=== PATIENT | female | born 1995 | race African-American/Black ===

== ENCOUNTER 2020-07-06 17:47 | Emergency (ER) | payer MEDICAID, MEDICARE ==
[~2020-07-06] VITALS: Ht 160 cm; Wt 54.4 kg
[2020-07-06] MEDS ORDERED: IBUPROFEN 400 MG TAB PO ONE (18:45)
[2020-07-06] MEDS ORDERED: ACETAMINOPHEN 325 MG TAB PO ONE (18:45)
--- OUTSIDE RECORDS SUMMARY | 2020-07-06 19:15 | XMS REPORT | Continuity of Care Document ---
Author Author [facility] Organization [facility] Address [address] [place] [address] Phone Unavailable Care Team Providers Care Stonehand Name Role Phone Unavailable Unavailable Problems This patient has no known problems. Allergies, Adverse Reactions, Alerts This patient has no known allergies or adverse reactions. Social History Social Habit Start Date Stop Date Quantity Comments Source Sex Assigned At Nadja Wade Medications This patient has no known medications. Procedures This patient has no known procedures. Plan of Care Planned Activity Planned Date Details Comments Source Future Scheduled Test 2020-07-26 00:00:00 INFLUENZA VACCINE [code = INFLUENZA VACCINE] Beck Wade Future Scheduled Test 2017 00:00:00 Screening for fermin gnant neoplasm of cervix (procedure) [code = 550309666] [facility] Future Scheduled Test 2012 00:00:00 CHLAMYDIA SCREENIN G [code = CHLAMYDIA SCREENING] [facility] Sheri Results This patient has no known results.
--- OUTSIDE RECORDS SUMMARY | 2020-07-06 19:15 | XMS REPORT | Clinical Summary ---
Author Author [facility] Organization [facility] Address Unknown Phone Unavailable Care Team Providers Care Pbx Mechanic Name Role Phone PCP Unavailable Allergies No Known Allergies Medications Not on file Active Problems Not on file Social History Date Tobacco Use Types Packs/Day Years Used Never Assessed Sex Assigned at Date Recorded Not on file Industry Job Start Date Occupation Not on file Not on file Not on file Travel End Travel History Travel Start No recent travel history available. Last Filed Vital Signs Not on file Plan of Treatment Health Maintenance Due Date Last Done Comments CHLAMYDIA SCREENING 2012 CERVICAL CANCER SCREENING 2017 INFLUENZA VACCINE 07/26/2020 Results Not on fileafter 07/06/2019 Insurance Type Payer Benefit Subscriber ID Effective Phone Address Plan / Dates Group Medicaid MEDICAID MEDICAID xxxxxxxxx [id number] jovanna Advance Directives For more information, please contact: [phone] Patient [employer] Explanation Type Date Recorded Advance Directives, Living Will and Medical Power of Locomotive Inspector
--- NOTE | 2020-07-06 19:48 | Emergency Department Note ---
History of Present Illnes History of Present Illness Chief Complaint: General Medicine Complaints History of Present Illness This is a 24 year old female Chief Complaint Comment PATIENT IN FROM HOME WITH COMPLAINTS OF RIGHT ANKLE PAIN STARTING THIS MORNING; PATIENT DENIES ANY TRAUMA, NO TRIP OR FALL, NO RECENT INJURY. PATIENT RATES PAIN 10/10, AMBULATORY WITH A LIMP. Historian: Patient Arrival Mode: Car Differential Repairer Required: No Onset (how long ago): day(s) (1) Location: R ankle Quality: Dull Radiation: Reports non-radiation Severity: mild Onset quality: sudden Duration (how long): day(s) (1) Timing of current episode: constant Progression: unchanged Chronicity: new Context: Denies recent illness, Denies recent surgery Relieving factors: none Exacerbating factors: none Associated symptoms: Reports denies other symptoms Treatments prior to arrival: none Past Medical/Family History Physician Review I have reviewed the patient's past medical and family history. Any updates have been documented here. Past Medical History Recent Fever: No Clinical Suspicion of Infectio: No New/Unexplained Change in Ment: No Past Medical History: None Past Surgical History: None Social History Smoking Cessation: Current every day smoker Counseling Performed: Yes Alcohol Use: None Any Illegal Drug Use: No Physically hurt or threatened: No Other Last Tetanus: UNK Any Pre-Existing Lines (PICC,: No Review of Systems Review of Systems Constitutional: Reports no symptoms EENTM: Reports no symptoms Cardiovascular: Reports no symptoms Respiratory: Reports no symptoms Gastrointestinal: Reports no symptoms Genitourinary: Reports no symptoms Musculoskeletal: Reports as per HPI, Reports joint pain (R ankle) Integumentary: Reports no symptoms Neurological: Reports no symptoms Psychological: Reports no symptoms Endocrine: Reports no symptoms Hematological/Lymphatic: Reports no symptoms Physical Exam Related Data Allergies: Coded Allergies: No Known Allergies (Unverified , 03/27/17) Triage Vital Signs Vital Signs Date Time Temp Pulse Resp B/P (MAP) Pulse Ox O2 Delivery O2 Flow Rate FiO2 07/06/20 18:26 98.0 85 16 128/83 100 Room Air Vital signs reviewed: Yes Physical Exam CONSTITUTIONAL Constitutional: Present well-developed, Present well-nourished HENT HENT: Present normocephalic, Present atraumatic, Present oropharynx clear/moist, Present nose normal HENT L/R: Present left ext ear normal, Present right ext ear normal EYES Eyes: Reports PERRL, Reports conjunctivae normal NECK Neck: Present ROM normal PULMONARY Pulmonary: Present effort normal, Present breath sounds normal CARDIOVASCULAR Cardiovascular: Present regular rhythm, Present heart sounds normal, Present capillary refill normal, Present normal rate GASTROINTESTINAL Abdominal: Present soft, Present nontender, Present bowel sounds normal GENITOURINARY Genitourinary: Present exam deferred SKIN Skin: Present warm, Present dry MUSCULOSKELETAL Musculoskeletal: Present ROM normal, Present edema (Mild, R ankle), Present other (ROM full at R ankle, Able to ambulate. Neurovascularly intact) NEUROLOGICAL Neurological: Present alert, Present oriented x 3, Present no gross motor or sensory deficits PSYCHOLOGICAL Psychological: Present mood/affect normal, Present judgement normal Results Imaging Imaging results reviewed: Yes Assessment & Plan Medical Decision Making MDM 24-year-old female presents with right ankle pain, atraumatic. Jaw has some mild swelling. She denies history of STI's. Initial differential includes septic arthritis versus ankle sprain versus dependent edema among others. Doubt septic joint at this time due to patient's ability to ambulate, no erythema, no warmth. X-rays of the ankle show no acute abnormality. Doubt emergent process at this time. I discussed results patient as well as expected disease time course and management. They will follow up with their primary care provider or return to the emergency department for new or worsening symptoms. Patient's appropriate for discharge. Part of this note was dictated with Coleman and is subject to recognition error Reassessment Reassessment time: 19:48 Reassessment Well appearing, NAD Assessment & Plan Final Impression: (1) Ankle swelling Depart Disposition: HOME, SELF-CARE Last Vital Signs Date Time Temp Pulse Resp B/P (MAP) Pulse Ox O2 Delivery O2 Flow Rate FiO2 07/06/20 18:26 98.0 85 16 128/83 100 Room Air Home Meds No Active Prescriptions or Reported Meds Medications in the ED Ibuprofen 400 mg ONCE ONCE PO Last administered on 07/06/20at 19:25; Admin Dose 400 MG; Start 07/06/20 at 18:45; Stop 07/06/20 at 18:54; Status DC Acetaminophen 650 mg ONCE ONCE PO Last administered on 07/06/20at 19:25; Admin Dose 650 MG; Start 07/06/20 at 18:45; Stop 07/06/20 at 18:54; Status DC DUKE LINDSAY MD Jul 06, 2020 19:48
--- NOTE | 2020-07-06 20:33 | Diagnostic Imaging Report ---
X-ray 3 views of the ankle. HISTORY: Pain. COMPARISON: None available. FINDINGS: Bones/joints: No acute fracture or dislocation. Ankle mortise is symmetric Soft tissues:No focal soft tissue abnormality. IMPRESSION: No acute radiographic abnormality. Signed by: Ben Dutta MD on 07/06/2020 8:30 PM
[2020-07-06 20:52] VITALS: BP 131/82
== END 2020-07-06 20:55 | disposition home or self-care (01) ==
LOC: ER 18:13
DX: M25.571 Pain in right ankle and joints of right foot (principal); M25.471 Effusion, right ankle; F17.210 Nicotine dependence, cigarettes, uncomplicated
CPT/HCPCS: 99283